=== PATIENT | male | born 1935 | race Two or more races ===

== ENCOUNTER 2017-09-04 01:06 | Inpatient (IN) | payer OTHER ==
[~2017-09-04] VITALS: Ht 167.6 cm; Wt 64.4 kg
[~2017-09-04 01:06] MED LIST: AMOX1TAB5 PO; ANTIHIPERTENSIVO; DIS S MC; GLUMETZA1000 MG; HYZAAR 100-251 UDTAB; INSULIN MC; LANTUS100 U/ML SQ; LEVAQUIN750 MG PO; NORVASC5 MG; PLAVIX75 MG; PLETAL100 MG; SIMVASTATIN5 MG; ULTRACET PO; Ultracet Tablet PO; ZANTAC300 MG PO
[2017-09-04] MEDS ORDERED: NITROGLYCERIN0.4 MG (01:14)
[2017-09-10] MEDS ORDERED: ISOSORBIDE DINI30 MG PO ×2 (12:37→12:39)
== END 2017-09-10 12:58 | disposition home or self-care (01) | DRG 292 ==
LOC: ER 01:06 → ICU-2 13:17 → SEC-K 09-08 12:13 → MEDI 09-08 16:29 → MEDJ 09-08 16:29
PROC: B246ZZZ Ultrasonography of Right and Left Heart (ICD-10-PCS; principal; 2017-09-04)
PROC: 4A033R1 Measurement of Arterial Saturation, Peripheral, Percutaneous Approach (ICD-10-PCS; 2017-09-04)
PROC: 3E0F7GC Introduction of Other Therapeutic Substance into Respiratory Tract, Via Natural or Artificial Opening (ICD-10-PCS; 2017-09-04)
PROC: C23GYZZ Positron Emission Tomographic (PET) Imaging of Myocardium using Other Radionuclide (ICD-10-PCS; 2017-09-07)
PROC: 4A12XM4 Monitoring of Cardiac Stress, External Approach (ICD-10-PCS; 2017-09-07)
PROC: 3E033HZ Introduction of Radioactive Substance into Peripheral Vein, Percutaneous Approach (ICD-10-PCS; 2017-09-07)
PROC: 4A12X4Z Monitoring of Cardiac Electrical Activity, External Approach (ICD-10-PCS; 2017-09-08)
DX: I11.0 Hypertensive heart disease with heart failure (principal); I25.810 Atherosclerosis of coronary artery bypass graft(s) without angina pectoris; I24.9 Acute ischemic heart disease, unspecified; I50.33 Acute on chronic diastolic (congestive) heart failure; I25.2 Old myocardial infarction; Z95.1 Presence of aortocoronary bypass graft; I87.2 Venous insufficiency (chronic) (peripheral); E11.51 Type 2 diabetes mellitus with diabetic peripheral angiopathy without gangrene; E11.65 Type 2 diabetes mellitus with hyperglycemia; R42 Dizziness and giddiness

== ENCOUNTER 2017-12-08 09:58 | Outpatient (CLI) | payer OTHER ==
[~2017-12-08 09:58] MED LIST changes: +ISOSORBIDE DINI30 MG PO; +NITROGLYCERIN0.4 MG
== END 2017-12-08 10:09 | disposition home or self-care (01) ==
LOC: TOM 09:58
DX: G45.8 Other transient cerebral ischemic attacks and related syndromes (principal)

== ENCOUNTER → 2018-06-15 | Outpatient (CLI) | payer OTHER | END | disposition home or self-care (01) | LOC: RAD 501 13:42 | DX: H25.011 Cortical age-related cataract, right eye (principal); Z98.41 Cataract extraction status, right eye ==

== ENCOUNTER 2018-11-14 07:17 | Outpatient (CLI) | payer OTHER | END 2018-11-14 07:26 | disposition home or self-care (01) | LOC: NUCLEAR 07:17 | DX: I65.29 Occlusion and stenosis of unspecified carotid artery (principal) ==

== ENCOUNTER 2018-12-19 10:51 | Outpatient (CLI) | payer OTHER | END 2018-12-19 11:11 | disposition home or self-care (01) | LOC: MRI 10:51 | DX: G11.2 Late-onset cerebellar ataxia (principal) | CPT/HCPCS: 70551 ==